=== PATIENT | female | born 1960 | race Caucasian/White ===

== ENCOUNTER 2019-07-30 11:54 | Emergency (ER) | payer BC ==
--- NOTE | 2019-07-30 12:23 | EDM.PDOC ---
ED HPI GENERAL MEDICAL PROBLEM - General Chief Complaint: Head Injury Stated Complaint: FALL Time Seen by Provider: 07/30/19 12:21 Source of Information: Reports: Patient - History of Present Illness INITIAL COMMENTS - FREE TEXT/NARRATIVE: HISTORY AND PHYSICAL: History of present illness: [Slipped on the ice today landing on her back flat striking occiput with short loss of conscious no fever nausea vomiting chills sweats no dizziness ] Review of systems: As per history of present illness and below otherwise all systems reviewed and negative. Past medical history: As per history of present illness and as reviewed below otherwise noncontributory. Surgical history: As per history of present illness and as reviewed below otherwise noncontributory. Social history: No reported history of drug or alcohol abuse. Family history: As per history of present illness and as reviewed below otherwise noncontributory. Physical exam: HEENT: Atraumatic, normocephalic, pupils reactive, negative for conjunctival pallor or scleral icterus, mucous membranes moist, throat clear, neck supple, nontender, trachea midline. Contusion on occiput consistent with injury Lungs: Clear to auscultation, breath sounds equal bilaterally, chest nontender. Heart: S1S2, regular, negative for clicks, rubs, or JVD. Abdomen: Soft, nondistended, nontender. Negative for masses or hepatosplenomegaly. Negative for costovertebral tenderness. Pelvis: Stable nontender. Genitourinary: Deferred. Rectal: Deferred. Extremities: Atraumatic, negative for cords or calf pain. Neurovascular unremarkable. Neuro: Awake, alert, oriented. Cranial nerves II through XII unremarkable. Cerebellum unremarkable. Motor and sensory unremarkable throughout. Exam nonfocal. Diagnostics: [See CMP troponin INR EKG Chest 1 view Pelvis [address] cervical spine CT no contrast ] Therapeutics: [tylenol ] Impression: [Concussion Contusion ] Definitive disposition and diagnosis as appropriate pending reevaluation and review of above. 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 Musculoskeletal History: Reports: None Neurological History: Reports: None Psychiatric History: Reports: None Endocrine/Metabolic History: Reports: None Hematologic History: Reports: None Immunologic History: Reports: None Oncologic (Cancer) History: Reports: None Dermatologic History: Reports: None - Infectious Disease History Infectious Disease History: Reports: None - Past Surgical History Head Surgeries/Procedures: Reports: None HEENT Surgical History: Reports: None Cardiovascular Surgical History: Reports: None Respiratory Surgical History: Reports: None GI Surgical History: Reports: None Female Surgical History: Reports: None Endocrine Surgical History: Reports: None Neurological Surgical History: Reports: None Musculoskeletal Surgical History: Reports: None Oncologic Surgical History: Reports: None Dermatological Surgical History: Reports: None Social & Family History - Family History Family Medical History: Noncontributory - Tobacco Use Smoking Status *Q: Never Smoker Second Hand Smoke Exposure: No - Caffeine Use Caffeine Use: Reports: None - Recreational Drug Use Recreational Drug Use: No ED ROS GENERAL - Review of Systems Review Of Systems: See Below ED EXAM, HEAD INJURY - Physical Exam Exam: See Below Course - Vital Signs Last Recorded V/S: Last Vital Signs Temp 97.0 F 07/30/19 11:57 Pulse 75 07/30/19 11:57 Resp 18 07/30/19 11:57 BP 154/93 H 07/30/19 11:57 Pulse Ox 97 07/30/19 11:57 - Orders/Labs/Meds Orders: Active Orders 24 hr Category Date Time Status EKG 12 Lead [EKG Documentation Completion] [RC] STAT Care 07/30/19 12:05 Active Acetaminophen [Tylenol] Med 07/30/19 13:37 Once 650 mg PO NOW ONE Labs: Laboratory Tests 07/30/19 07/30/19 07/30/19 Range/Units 12:02 12:02 12:02 WBC 5.55 (4.0-11.0) K/uL RBC 4.70 (4.30-5.90) M/uL Hgb 14.2 (12.0-16.0) g/dL Hct 42.5 (36.0-46.0) % MCV 90.4 (80.0-98.0) fL MCH 30.2 (27.0-32.0) pg MCHC 33.4 (31.0-37.0) g/dL RDW Std Deviation 44.7 (28.0-62.0) fl RDW Coeff of Jame 13 (11.0-15.0) % Plt Count 211 (150-400) K/uL MPV 10.00 (7.40-12.00) fL Neut % (Auto) 58.2 (48.0-80.0) % Lymph % (Auto) 31.5 (16.0-40.0) % [place] % (Auto) 9.9 (0.0-15.0) % Eos % (Auto) 0.0 (0.0-7.0) % Baso % (Auto) 0.4 (0.0-1.5) % Neut # (Auto) 3.2 (1.4-5.7) K/uL Lymph # (Auto) 1.8 (0.6-2.4) K/uL [place] # (Auto) 0.6 (0.0-0.8) K/uL Eos # (Auto) 0.0 (0.0-0.7) K/uL Baso # (Auto) 0.0 (0.0-0.1) K/uL Nucleated RBC % 0.0 /100WBC Nucleated RBCs # 0 K/uL INR 0.93 Sodium 138 (136-145) mmol/L Potassium 3.5 (3.5-5.1) mmol/L Chloride 101 (98-107) mmol/L Carbon Dioxide 27.0 (21.0-32.0) mmol/L BUN 17 (7.0-18.0) mg/dL Creatinine 0.6 (0.6-1.0) mg/dL Est Cr Clr Drug Dosing 70.73 mL/min Estimated GFR (MDRD) > 60.0 ml/min Glucose 116 H (74-106) mg/dL Calcium 8.9 (8.5-10.1) mg/dL Total Bilirubin 0.4 (0.2-1.0) mg/dL AST 19 (15-37) IU/L ALT 26 (14-63) IU/L Alkaline Phosphatase 89 (46-116) U/L Troponin I < 0.050 (0.000-0.056) ng/mL Total Protein 7.9 (6.4-8.2) g/dL Albumin 3.9 (3.4-5.0) g/dL Globulin 4.0 (2.6-4.0) g/dL Albumin/Globulin Ratio 1.0 (0.9-1.6) Departure - Departure Time of Disposition: 13:39 Disposition: Home, Self-Care 01 Condition: Good Clinical Impression: Concussion with less than 1 hour loss of consciousness - Discharge Information Referrals: PCP,None [Primary Care Provider] - Forms: ED Department Discharge Additional Instructions: The following information is given to patients seen in the emergency department who are being discharged to home. This information is to outline your options for follow-up care. We provide all patients seen in our emergency department with a follow-up referral. The need for follow-up, as well as the timing and circumstances, are variable depending upon the specifics of your emergency department visit. If you don't have a primary care physician on staff, we will provide you with a referral. We always advise you to contact your personal physician following an emergency department visit to inform them of the circumstance of the visit and for follow-up with them and/or the need for any referrals to a consulting specialist. The emergency department will also refer you to a specialist when appropriate. This referral assures that you have the opportunity for follow-up care with a specialist. All of these measure are taken in an effort to provide you with optimal care, which includes your follow-up. Under all circumstances we always encourage you to contact your private physician who remains a resource for coordinating your care. When calling for follow-up care, please make the office aware that this follow-up is from your recent emergency room visit. If for any reason you are refused follow-up, please contact the [facility] emergency department at and asked to speak to the emergency department charge nurse. Sepsis Event Note - Evaluation Sepsis Screening Result: No Definite Risk - Focused Exam Vital Signs: Vital Signs Temp Pulse Resp BP Pulse Ox 07/30/19 11:57 97.0 F 75 18 154/93 H 97 Date Exam was Performed: 07/30/19 Time Exam was Performed: 13:38 - My Orders Last 24 Hours: My Active Orders 07/30/19 12:05 EKG 12 Lead [EKG Documentation Completion] [RC] STAT 07/30/19 13:37 Acetaminophen [Tylenol] 650 mg PO NOW ONE - Assessment/Plan Last 24 Hours: My Active Orders 07/30/19 12:05 EKG 12 Lead [EKG Documentation Completion] [RC] STAT 07/30/19 13:37 Acetaminophen [Tylenol] 650 mg PO NOW ONE
[2019-07-30 12:40] LABS: BLOOD UREA NITROGEN,BUN 17 mg/dL (7.0-18.0); CHLORIDE,CL 101 mmol/L (98-107); GLUCOSE RANDOM 116 mg/dL (74-106); POTASSIUM,K 3.5 mmol/L (3.5-5.1); SODIUM,NA 138 mmol/L (136-145)
--- NOTE | 2019-07-30 13:03 | CT ---
Head CT Technique: Multiple axial sections through the brain were obtained. Intravenous contrast was not utilized. Comparison: No prior intracranial imaging is available. Findings: Soft tissue hematoma is noted posteriorly within the scalp. Ventricles along with basal cisterns and sulci over convexities are within normal limits for the patient's age. No abnormal parenchymal densities are seen. No evidence of intracranial hemorrhage. No midline shift or mass effect is seen. Bone window settings were reviewed which shows minimal mucosal thickening within the maxillary sinuses. No acute calvarial abnormality is seen. No acute mastoid sinus findings are seen. Impression: 1. Scalp hematoma posteriorly. 2. No acute intracranial abnormality is identified. Diagnostic code #2 This report was dictated in [place] Standard Time
--- NOTE | 2019-07-30 13:03 | CT ---
CT cervical spine Technique: Multiple axial sections were obtained from above C1 inferiorly to the mid T3 levels. Reconstructed sagittal and coronal images were reviewed. Findings: Mild disc space narrowing is noted at C5-C6. Posterior osteophytes are seen at C5-C6. Vertebral bodies and posterior arches are intact. No fracture is seen. No bony central or bony neural foraminal stenosis is noted. No subluxation or fracture is seen. Mild degenerative apophyseal change is noted within the upper cervical spine and upper thoracic spine. Diffuse disc bulging is noted at C5-C6. Other disks are grossly maintained. Impression: 1. Mild degenerative change. 2. No acute abnormality is appreciated on CT study of the cervical spine. Diagnostic code #2 This report was dictated in [place] Standard Time
--- NOTE | 2019-07-30 13:17 | CR ---
Chest: Portable view of the chest was obtained. Comparison: No prior chest imaging. Heart size and mediastinum are normal. Lungs are clear with no acute parenchymal change. Bony structures are grossly intact. Impression: 1. Nothing acute is identified on portable chest x-ray. Diagnostic code #1 This report was dictated in [place] Standard Time
--- NOTE | 2019-07-30 13:17 | CR ---
Pelvis: AP view of the pelvis was obtained. Comparison: No prior pelvis study. Joint spaces within both hips are maintained. Sacroiliac joints appear within normal limits. No acute fracture or other bony abnormality is identified. Impression: 1. No abnormality is identified on AP pelvis study. Diagnostic code #1 This report was dictated in [place] Standard Time
[2019-07-30] MEDS ORDERED: Acetaminophen 325 MG/10.15 ML ML PO ONE (13:37)
== END 2019-07-30 14:14 | disposition home or self-care (01) ==
LOC: MW.ED 11:54
DX: S06.0X9A Concussion with loss of consciousness of unspecified duration, initial encounter (principal); S00.03XA Contusion of scalp, initial encounter; Z79.899 Other long term (current) drug therapy; W00.0XXA Fall on same level due to ice and snow, initial encounter
CPT/HCPCS: 36415; 70450; 71045; 72125; 72170; 80053; 84484; 85025; 85610; 93005; 99284; A9270